=== PATIENT | male | born 1960 | race Caucasian/White ===

== ENCOUNTER 2018-10-28 08:12 | Emergency (ER) | payer MEDICARE ==
[~2018-10-28] VITALS: Ht 172.7 cm; Wt 101.5 kg
[2018-10-28 08:14] VITALS: BP 173/85
--- NOTE | 2018-10-28 08:56 | NUR ---
ASSUMED CARE OF PATIENT. PIV STARTED AND BLOOD DRAWN. URINE AND BLOOD SENT TO LAB. PT RESTING WITH NO COMPLAINTS. AT BEDSIDE. CALL LIGHT IN LAP.
[2018-10-28 09:08] LABS: BASOPHILS # (AUTO) 0.02 x10^3/uL (0-0.1); BASOPHILS % (AUTO) 0 % (0-1); EOSINOPHILS % (AUTO) 4 % (1-7); LYMPHOCYTES # (AUTO) 2.12 x10^3/uL (1-3.4); LYMPHOCYTES % (AUTO) 37 % (22-44); MD NO; MEAN CORPUSCULAR HEMOGLOBIN 33.1 pg (27.5-34.5); MEAN CORPUSCULAR HGB CONC 33.5 g/dL (33.2-36.2); MEAN CORPUSCULAR VOLUME 98.8 fL (81-97); MEAN PLATELET VOLUME 10.4 fL (7.4-10.4); MONOCYTES # (AUTO) 0.39 x10^3/uL (0.2-0.8); MONOCYTES % (AUTO) 7 % (2-9); NEUTROPHILS # (AUTO) 3.07 x10^3/uL (1.8-6.8); NEUTROPHILS % (AUTO) 53 % (42-75); PLATELET COUNT 183 x10^3/uL (130-400); RED BLOOD COUNT 4.38 x10^6/uL (4.38-5.82); RED CELL DISTRIBUTION WIDTH 13.4 % (9.4-14.8)
[2018-10-28 09:15] LABS: ALBUMIN 3.9 g/dL (3.4-5.0); ANION GAP 7 mmol/L (5-15); CALCIUM 8.6 mg/dL (8.5-10.1); CHLORIDE 110 mmol/L (98-107)
[2018-10-28 09:18] LABS: MICROSCOPIC INDICATED
[2018-10-28 09:18] LABS: ALANINE AMINOTRANSFERASE 77 U/L (12-78); ALKALINE PHOSPHATASE 102 U/L (45-117); CREATININE 0.82 mg/dL (0.7-1.3); TOTAL PROTEIN 7.2 g/dL (6.4-8.2)
[2018-10-28 09:21] LABS: CULTURE INDICATED? YES
[2018-10-28 09:35] LABS: PROTHROMBIN TIME 10.5 Seconds (9.6-11.5)
[2018-10-28] MEDS ORDERED: OMNIPAQUE 350 MG/ML, 100ML BOTTLE ONE (09:48)
== END 2018-10-28 11:10 | disposition home or self-care (01) ==
LOC: ED 11:00
DX: N30.00 Acute cystitis without hematuria (principal); N02.9 Recurrent and persistent hematuria with unspecified morphologic changes
CPT/HCPCS: 36415; 74177; 80053; 81001; 85025; 85610; 87086; 99284; Q9967